=== PATIENT | male | born 1985 | race Caucasian/White ===

== ENCOUNTER 2022-04-24 21:57 | Emergency (ER) | payer MEDICAID, OTHER ==
[~2022-04-24] VITALS: Ht 172.7 cm; Wt 105.2 kg
[2022-04-24 22:16] VITALS: BP 161/84
--- NOTE | 2022-04-24 22:23 | NUR ---
TO LOBBY FOLLOWING TRIAGE
[2022-04-24] MEDS ORDERED: IBUPROFEN 800 MG TAB PO ONE (23:30)
[2022-04-24] MEDS ORDERED: ONDANSETRON 4 MG ODT PO ONE (23:30)
[2022-04-25 01:55] VITALS: BP 161/84
--- NOTE | 2022-04-25 01:55 | NUR ---
Patient discharged with v/s stable. Written and verbal after care instructions given and explained. Patient verbalized understanding. Ambulatory with steady gait. All questions addressed prior to discharge. Advised to follow up with PMD.
== END 2022-04-25 01:55 | disposition home or self-care (01) ==
LOC: MED 21:57
DX: R07.89 Other chest pain (principal); R11.0 Nausea; V89.2XXA Person injured in unspecified motor-vehicle accident, traffic, initial encounter; Y93.89 Activity, other specified; Y92.89 Other specified places as the place of occurrence of the external cause; Y99.8 Other external cause status
CPT/HCPCS: 71250; 74176; 99284; Q0162; 99283